=== PATIENT | female | born 2000 | race Caucasian/White ===

== ENCOUNTER 2024-08-15 12:43 | Emergency (ER) | payer BC, SELFPAY ==
[2024-08-15 12:44] VITALS: BP 144/97
[2024-08-15 13:07] LABS: % Basophils 0.8 % (0-2); % Eosinophils 0.1 % (0-6); % Immature Granulocytes 0.3 % (0-0.5); % Monocytes 4.7 % (1.7-9.3); % Neutrophils 78.1 % (42.2-75.2); Absolute Basophils 0.1 10^3/uL (0-0.2); Absolute Lymphocytes 1.6 10^3/uL (1.2-3.4); Absolute Monocytes 0.5 10^3/uL (0.1-0.6); Absolute Neutrophils 7.8 10^3/uL (1.4-6.5); Hematocrit 46.1 % (37.0-47.0); Hemoglobin 16.5 g/dL (12.0-16.0); Mean Corp Hgb Conc. 35.8 g/dL (33.0-37.0); Mean Corpuscular Hgb 30.1 pg (27.0-31.0); Mean Corpuscular Volume 84.1 fL (81.0-99.0); Mean Platelet Volume 10.4 fL (7.4-10.4); Nucleated Red Blood Cells % 0 %; Platelet Count 317 10^3/uL (130-400); Red Blood Cell Count 5.48 10^6/uL (4.20-5.40); Red Cell Dist. Width 11.1 % (11.5-14.5)
[2024-08-15 13:09] LABS: Urine Albumin Negative (Neg - Trace); Urine Bilirubin Negative (Negative); Urine Character Clear (Clear); Urine Color Yellow; Urine Glucose Negative (Negative); Urine Ketone 3+ (Negative); Urine Leukocyte Negative (Negative); Urine Nitrite Negative (Negative); Urine Occult Blood Negative (Negative); Urine Urobilinogen Negative (Neg - 1+)
[2024-08-15 13:20] VITALS: BP 120/83
[2024-08-15 13:25] LABS: HCG, Serum Qualitative Screen Negative
[2024-08-15 13:36] LABS: Troponin I < 0.012 ng/ml
--- NOTE | 2024-08-15 13:50 | ED.GENMED ---
History of Present Illness
<Karlene Cotto PA-C - Last Filed: 08/16/24 13:58>
General
Chief Complaint: Dizziness
Source: patient
Exam Limitations: none
Time Seen by Provider: 08/15/24 13:50
History of Present Illness
History of Present Illness:
23yoF with no significant past medical history presenting for evaluation of URI symptoms. Patient started to become sick about a week ago with sore throat. Sore throat has since resolved. She is currently experiencing congestion, cough, as well
as a mild headache. Tmax 100.1. She is experiencing shortness of breath and dizziness with standing/activity. She is also having some nausea, decreased appetite, and a burning pain in her upper abdomen. She was in [place] 2 weeks ago with
friends and one of her friends had a sinus infection. She denies any dysuria, vomiting, diarrhea.
Past History
<Karlene Cotto PA-C - Last Filed: 08/16/24 13:58>
Past History
ED Past Medical History: None
ED Past Surgical History: None
Social History
Tobacco: Non-smoker
Alcohol: None
Drug: None
Personal: Single
Living: with family
Employment: Employed
Phy Exam
<Karlene Cotto PA-C - Last Filed: 08/16/24 13:58>
General Physical Exam
General Presentation: well appearing and no apparent distress
General Skin: warm and dry
General Habitus: normal
General Mental: alert
ENT Exam
ENT Exam: TM's normal, pharynx normal, neck supple and normocephalic
Additional ENT: No nuchal rigidity
Cardiovascular Exam
Cardiovascular Exam: regular rate/rhythm and no murmur
Pulmonary Exam
Pulmonary Exam: lungs clear, no respiratory distress, no rales, no crackles, no rhonchi and no wheezing
Gastrointestinal Exam
Gastrointestinal Exam: soft, non distended and other (Mild tenderness in RUQ without rebound or guarding.)
Neurological Exam
Neurological Exam: alert
Roe Coma Scale
Eye Opening: Spontaneous
Verbal Response: Oriented
Motor Response: Obeys Commands
GCS Total Score: 15
Skin Exam
Skin Exam: normal color and warm/dry
Psychiatric Exam
Psychiatric Exam: normal mood/affect
<Celia Castillo MANAGER TERMINAL - Last Filed: 08/15/24 18:27>
Joe Coma Scale
GCS Total Score: 15
Course
<Karlene Cotto PA-C - Last Filed: 08/16/24 13:58>
Orders/Labs/Results
Orders:
Orders
08/15/24 12:47
Electrocardiogram (*1) Urgent
Reason for Study: Chest Pain
EKG- Treatment ONCE
Test Result ONCE
08/15/24 12:56
Basic Metabolic Panel Urgent
Complete Blood Count/With Diff Urgent
HCG, Serum Qualitative Screen Urgent
Comment: Notify provider if positive test present
Monotest Urgent
Troponin I Urgent
08/15/24 13:01
Urinalysis Reflex To Culture Urgent
Date Specimen was Collected: 08/15/24
Time Specimen was Collected: 12:47
08/15/24 13:59
0.9% Sodium Chloride 1000 ml [Nss] 1,000 ml IV BOLUS
CR Chest - 2 Views Urgent
Comment:
Reason For Exam: SOB
US Abdomen Complete/Upper Urgent
Comment:
Reason For Exam: RUQ pain
08/15/24 14:02
Orthostatic VS- Treatment ONCE
08/15/24 15:30
COVID-19 Antigen Urgent
Source: Nasal Swab
D-Dimer Urgent
LFT [Twpgs-Eebh-Stbjgom] Urgent
Potassium Urgent
08/15/24 15:31
Influenza A+B Rapid Molecular Urgent
KO Source: Nasal Swab
Specimen Description:
Abnormal Lab Results
08/15/24 08/15/24
12:56 13:01
RBC 5.48 H 10^6/uL
(4.20-5.40)
Hgb 16.5 H g/dL
(12.0-16.0)
RDW 11.1 L %
(11.5-14.5)
Absolute Neuts (auto) 7.8 H 10^3/uL
(1.4-6.5)
Neutrophils % 78.1 H %
(42.2-75.2)
Lymphocytes % 16.0 L %
(20.5-51.1)
Carbon Dioxide 19 L mmol/L
(22-30)
Glucose 130 H mg/dl
(70-99)
Calcium 10.6 H mg/dl
(8.4-10.2)
Urine Ketones 3+ A
(Negative)
Monoscreen Positive A
(Negative)
08/15/24 12:56
08/15/24 15:30
Vital Signs
Initial and Last Documented VS:
Initial Vital Signs
Temp Pulse Resp BP Pulse Ox
98.7 F 140 20 144/97 99
08/15/24 12:44 08/15/24 12:44 08/15/24 12:44 08/15/24 12:44 08/15/24 12:44
Last Documented Vital Signs
Temp Pulse Resp BP Pulse Ox
98.7 F 75 18 101/54 98
08/15/24 16:00 08/15/24 16:00 08/15/24 16:00 08/15/24 16:00 08/15/24 16:00
<Celia Castillo, MANAGER TERMINAL - Last Filed: 08/15/24 18:27>
Orders/Labs/Results
Orders:
Orders
08/15/24 12:47
Electrocardiogram (*1) Urgent
Reason for Study: Chest Pain
EKG- Treatment ONCE
Test Result ONCE
08/15/24 12:56
Basic Metabolic Panel Urgent
Complete Blood Count/With Diff Urgent
HCG, Serum Qualitative Screen Urgent
Comment: Notify provider if positive test present
Monotest Urgent
Troponin I Urgent
08/15/24 13:01
Urinalysis Reflex To Culture Urgent
Date Specimen was Collected: 08/15/24
Time Specimen was Collected: 12:47
08/15/24 13:59
0.9% Sodium Chloride 1000 ml [Nss] 1,000 ml IV BOLUS
CR Chest - 2 Views Urgent
Comment:
Reason For Exam: SOB
US Abdomen Complete/Upper Urgent
Comment:
Reason For Exam: RUQ pain
08/15/24 14:02
Orthostatic VS- Treatment ONCE
08/15/24 15:30
COVID-19 Antigen Urgent
Source: Nasal Swab
D-Dimer Urgent
LFT [Snidm-Dnow-Uachonv] Urgent
Potassium Urgent
08/15/24 15:31
Influenza A+B Rapid Molecular Urgent
KO Source: Nasal Swab
Specimen Description:
Abnormal Lab Results
08/15/24 08/15/24
12:56 13:01
RBC 5.48 H 10^6/uL
(4.20-5.40)
Hgb 16.5 H g/dL
(12.0-16.0)
RDW 11.1 L %
(11.5-14.5)
Absolute Neuts (auto) 7.8 H 10^3/uL
(1.4-6.5)
Neutrophils % 78.1 H %
(42.2-75.2)
Lymphocytes % 16.0 L %
(20.5-51.1)
Carbon Dioxide 19 L mmol/L
(22-30)
Glucose 130 H mg/dl
(70-99)
Calcium 10.6 H mg/dl
(8.4-10.2)
Urine Ketones 3+ A
(Negative)
Monoscreen Positive A
(Negative)
08/15/24 12:56
08/15/24 15:30
Vital Signs
Initial and Last Documented VS:
Initial Vital Signs
Temp Pulse Resp BP Pulse Ox
98.7 F 140 20 144/97 99
08/15/24 12:44 08/15/24 12:44 08/15/24 12:44 08/15/24 12:44 08/15/24 12:44
Last Documented Vital Signs
Temp Pulse Resp BP Pulse Ox
98.7 F 75 18 101/54 98
08/15/24 16:00 08/15/24 16:00 08/15/24 16:00 08/15/24 16:00 08/15/24 16:00
<Karlene Cotto PA-C - Last Filed: 08/16/24 13:58>
MDM/Problems Addressed
Differential Diagnosis Includes:
23yoF here with URI symptoms x 1 week. Currently c/o nasal congestion, CASTILLO, chest pain, SOB/dizziness with activity. HR 140 in triage which improved to 99 prior to initial exam. She is well appearing in no distress. Mild tenderness in RUQ. Exam is
otherwise reassuring. Differential diagnosis includes but is not limited to: viral illness, pneumonia, myocarditis, consider PE
Initial ED plan: Workup initiated in triage. White count is normal. No signs of infection on UA. EKG shows sinus tachycardia without ischemic changes and troponin WNL. Will check COVID/flu swabs, CXR, and upper abdominal ultrasound. IV fluid bolus.
<Celia Castillo MANAGER TERMINAL - Last Filed: 08/15/24 18:27>
MDM/Problems Addressed
MDM/Problems Addressed:
5:50 PM:
D-dimer is normal,
Abdominal ultrasound radiology report read: IMPRESSION:
No gallstones or bile duct dilatation. Unremarkable sonographic appearance of the liver.
Incidental advanced distention of the right renal pelvis and mild distention of the left renal pelvis. No associated significant distention of the calyceal system. No shadowing renal calculi identified. 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
Recommend correlation with patient history and renal function tests.
Results discussed with pt, copy of report provided to her
CBC, CMP, U/A with no significant abnormality, Covid neg, Lamoure positive, Troponin neg, D dimer normal
Pt stable for discharge
Diagnosis: Mononucleosis
<Karlene Cotto PA-C - Last Filed: 08/16/24 13:58>
*Pulse Oximetry
SaO2: 99
Oxygen Mode of Delivery: Room air
*EKG
Interpreted by ED Provider?: Yes
EKG Intrepretation Date: 08/15/24
Heart Rate: 110
Rate: tachycardiac
Rhythm: sinus
[place]: normal axis
Interval: normal interval
QRS Pattern: normal QRS
Ischemia: no ischemia
<Celia Castillo, MANAGER TERMINAL - Last Filed: 08/15/24 18:27>
*Pulse Oximetry
Patient hypoxic: not evaluated
*Critical Care Note
Total Time (30-74mins, 75-104mins- exclusive of procedures): Not Applicable
ED Attending Note
<Karlene Cotto PA-C - Last Filed: 08/16/24 13:58>
-
Portions of this chart may have been created with voice recognition software.� Occasional wrong word or��sound alike� substitutions may have occurred due to the inherent limitations of voice recognition software.
Discharge Plan
Departure
Patient Disposition: Home (Routine Discharge)
Date of Disposition: 08/15/24
Time of Disposition: 18:04
Patient with high blood pressure during this ER visit?: No
Condition: Good
Discharge Problem:
Mononucleosis
Instructions: Mononucleosis
Prescriptions:
No Action
No Current Medications
0
Referrals:
Dalila Quiroz MD [Family Provider, Internal Medicine] - As needed
Activity Restrictions/Additional Instructions:
As we discussed, your workup today shows nothing worrisome. Your monotest is positive.
Your ultrasound shows some mild abnormalities of your kidneys that are likely nothing worrisome and have been there since . Please take your ultrasound report with you to your doctors appointment and discuss. Everything else was normal.
Interventions
Interventions:
*Risk Screen - Suicide Last Done: 08/15/24 12:44
*General Assessment Last Done: 08/15/24 13:05
*Neglect/Abuse Screening Last Done: 08/15/24 12:44
*ED- Fall Risk Assessment Last Done: 08/15/24 13:05
*ED COVID-19 Vaccine History Last Done: 08/15/24 18:30
*Nursing Disposition Last Done: 08/15/24 18:30
ED- Neurological Assessment Last Done: 08/15/24 13:05
ED- Cardiac Assessment Last Done: 08/15/24 13:05
ED Swallowing Screen Last Done: 08/15/24 13:05
Discharge Date and Time
Discharge Date/Time: 08/15/24 18:35
Print Language: KENYAN
[2024-08-15 13:57] LABS: Blood Urea Nitrogen 11 mg/dl (7-17); Glucose 130 mg/dl (70-99); Sodium 140 mmol/L (135-145); eGFR > 60.00
[2024-08-15 13:58] LABS: Calcium 10.6 mg/dl (8.4-10.2); Carbon Dioxide 19 mmol/L (22-30); Chloride 106 mmol/L (98-107)
[2024-08-15] MEDS: NSS 1000 IV (14:00)
[2024-08-15 14:02] VITALS: BP 106/70; BP 113/72; BP 98/74; PULSE 100; PULSE 117; PULSE 122
[2024-08-15 14:04] LABS: Monotest Positive (Negative)
[2024-08-15 15:51] LABS: ALT (SGPT) 15 U/L (0-35); AST (SGOT) 20 U/L (14-36); Albumin 4.6 g/dl (3.5-5.0); Alkaline Phosphatase 74 U/L (38-126); Direct Bilirubin 0.2 mg/dl (0.0-0.4); Potassium 4.2 mmol/L (3.5-5.1); Total Bilirubin 0.8 mg/dl (0.2-1.3); Total Protein 7.2 g/dl (6.3-8.2)
[2024-08-15 15:54] LABS: COVID-19 Antigen Negative (Negative)
[2024-08-15 16:00] VITALS: BP 101/54
[2024-08-15 16:09] LABS: D-Dimer < 0.27 ug/mlFEU (0.00-0.50)
== END 2024-08-15 18:35 | disposition home or self-care (01) ==
LOC: EMR 12:43
PROVIDERS: Physician Assistant; EMERGENCY PHYSICIAN Emergency Medicine; FAMILY PHYSICIAN Internal Medicine
DX: B27.90 Infectious mononucleosis, unspecified without complication (principal)
CPT/HCPCS: 99284; 96360; 71046; 76700; 80048; 80076; 81003; 84132; 84484; 84703; 85025; 85379; 86308; 87502; 87811; 93005

== ENCOUNTER 2024-08-21 10:26 | Emergency (ER) | payer BC, SELFPAY ==
[2024-08-21] VITALS (11 sets, daily range): BP systolic 107–155; BP diastolic 59–86; BMI 25.0
--- NOTE | 2024-08-21 10:51 | ED.GENMED ---
History of Present Illness
<Diane Pierson MD - Last Filed: 08/21/24 16:15>
General
Chief Complaint: Heart Rate Problem
Source: patient
Exam Limitations: none
Time Seen by Provider: 08/21/24 10:54
Nursing documentation reviewed up to this point in time: agreed with
History of Present Illness
History of Present Illness:
Patient is a 23-year-old female who reports intermittent left-sided chest pain radiating into her back. Patient states at times it is worse when she takes a deep breath. Patient was recently seen in the emergency department for dizziness about a
week ago. At that time, she presented with a heart rate in the 140s but normalized with IV fluids and patient was diagnosed with mono. Patient reports her symptoms are much worse when she stands up and walks around. Patient describes a feeling of
rapid heart rate and feeling as if she is in a pass out. Patient denies a history of PE and DVT.
<Roseanne Carney MD, Resident - Last Filed: 08/21/24 16:04>
General
Source: patient and family
Exam Limitations: none
Nursing documentation reviewed up to this point in time: agreed with
History of Present Illness
History of Present Illness:
Ms. Lentz is a 23yoF with mononucleosis diagnosed 6 days ago, who is presenting with tachycardia and chest pain since this morning. She woke up this morning feeling her heart racing and her watch said 171 bpm. She feels pain in the middle of her
chest, under her left breast, at her left lateral side wall, and sometimes radiating to her back.
She endorses lightheadedness and seeing black dots when standing up, which has led her to sit at home for most of the last 2 weeks. She endorses feeling warm. She endorses eating and drinking well.
She recalls feeling similarly 2 weeks ago when she thought there was an intruder in her house. She states she was diagnosed with generalized anxiety disorder in high school and she manages it through behavioral methods, not medication. She does not
take any medications.
She was diagnosed with mononucleosis 6 days ago and has felt fatigued since 10 days ago, 3 days after returning from a trip to [place]. She received an abdominal ultrasound, which reported a normal-sized spleen and incidental UPJ obstruction
of the kidneys.
She denies a family history of tachycardia, arrhythmia, or thyroid disorder.
She reports her last menstrual period was 2 weeks ago. She denies taking oral contraceptives or recreational drugs. She denies shortness of breath. She denies trauma to her chest
Past History
<Diane Pierson MD - Last Filed: 08/21/24 16:15>
Family History
Family History: Other
<Roseanne Carney MD, Resident - Last Filed: 08/21/24 16:04>
Past History
ED Past Medical History: None
ED Past Surgical History: None
Social History
Tobacco: Non-smoker
Alcohol: None
Drug: None
Personal: Single
Living: with family
Employment: Employed
Review of Systems
<Diane Pierson MD - Last Filed: 08/21/24 16:15>
Review of Systems
Allergies reviewed?: Yes
All Other Systems: ROS reviewed and negative except as documented in HPI and ROS
Constitutional: Reports fatigue
EENT: Reports no symptoms
Respiratory: Reports cough
Cardiac: Reports chest pain and palpitations
ABD/GI: Reports no symptoms
: Reports no symptoms
Musculoskeletal: Reports no symptoms
Skin: Reports no symptoms
Neurological: Reports no symptoms
Endocrine: Reports no symptoms
Hematologic/Lymphatic: Reports no symptoms
Psychiatric: Reports no symptoms
Phy Exam
<Diane Pierson MD - Last Filed: 08/21/24 16:15>
Physical Exam
Physical Exam:
Physical Exam
General: no apparent distress, not acutely ill
Neck: supple. no meningeal signs. normal psoterior pharynx
Heart: Tachycardic, no murmur
Lungs: no acute respiratory distress. clear bilaterally
Abdomen: normal bowel sounds. not tender. no CVAT
Neuro: alert and oriented. no focal neurological deficits
Skin: no rash
Psychiatric: well kept. interactive and cooperative
Extremities: no edema. no calf tenderness. negative homans. good distal pulses
<Roseanne Carney MD, Resident - Last Filed: 08/21/24 16:04>
Pulmonary Exam
Pulmonary Exam: other (pleuritic breath sounds not auscultated)
Gastrointestinal Exam
Gastrointestinal Exam: non tender (non-tender except for left upper quadrant, which has been known since mononucleosis diagnosis)
Course
<Diane Pierson MD - Last Filed: 08/21/24 16:15>
Orders/Labs/Results
Orders:
Orders
08/21/24 10:27
EKG [Electrocardiogram (*1)] Urgent
Reason for Study: Tachycardia
EKG- Treatment ONCE
08/21/24 11:07
0.9% Sodium Chloride 1000 ml [Nss] 1,000 ml IV BOLUS
08/21/24 11:09
Complete Blood Count/No Diff Urgent
Comprehensive Metabolic Panel Urgent
Magnesium Urgent
TSH Urgent
Comment: ADD ON
Troponin I Urgent
08/21/24 11:41
Add On- LAB Urgent
Tests Added?: TSH
08/21/24 11:54
CT Chest PE Study Urgent
Comment:
Reason For Exam: tachycardia, CP
08/21/24 12:38
0.9% Sodium Chloride 1000 ml [Nss] 1,000 ml IV BOLUS
Abnormal Lab Results
08/21/24
11:09
RDW 11.1 L %
(11.5-14.5)
MPV 11.0 H fL
(7.4-10.4)
Carbon Dioxide 20 L mmol/L
(22-30)
BUN 18 H mg/dl
(7-17)
Calcium 10.3 H mg/dl
(8.4-10.2)
Albumin 5.2 H g/dl
(3.5-5.0)
08/21/24 11:09
08/21/24 11:09
Vital Signs
Initial and Last Documented VS:
Initial Vital Signs
Pulse Resp BP Pulse Ox
143 18 155/86 100
08/21/24 10:36 08/21/24 10:36 08/21/24 10:36 08/21/24 10:36
Last Documented Vital Signs
Temp Pulse Resp BP Pulse Ox
98.9 F 108 21 117/59 98
08/21/24 10:56 08/21/24 15:02 08/21/24 15:02 08/21/24 15:02 08/21/24 15:02
<Roseanne Carney MD, Resident - Last Filed: 08/21/24 16:04>
Orders/Labs/Results
Orders:
Orders
08/21/24 10:27
EKG [Electrocardiogram (*1)] Urgent
Reason for Study: Tachycardia
EKG- Treatment ONCE
08/21/24 11:07
0.9% Sodium Chloride 1000 ml [Nss] 1,000 ml IV BOLUS
08/21/24 11:09
Complete Blood Count/No Diff Urgent
Comprehensive Metabolic Panel Urgent
Magnesium Urgent
TSH Urgent
Comment: ADD ON
Troponin I Urgent
08/21/24 11:41
Add On- LAB Urgent
Tests Added?: TSH
08/21/24 11:54
CT Chest PE Study Urgent
Comment:
Reason For Exam: tachycardia, CP
08/21/24 12:38
0.9% Sodium Chloride 1000 ml [Nss] 1,000 ml IV BOLUS
Abnormal Lab Results
08/21/24
11:09
RDW 11.1 L %
(11.5-14.5)
MPV 11.0 H fL
(7.4-10.4)
Carbon Dioxide 20 L mmol/L
(22-30)
BUN 18 H mg/dl
(7-17)
Calcium 10.3 H mg/dl
(8.4-10.2)
Albumin 5.2 H g/dl
(3.5-5.0)
08/21/24 11:09
08/21/24 11:09
Vital Signs
Initial and Last Documented VS:
Initial Vital Signs
Pulse Resp BP Pulse Ox
143 18 155/86 100
08/21/24 10:36 08/21/24 10:36 08/21/24 10:36 08/21/24 10:36
Last Documented Vital Signs
Temp Pulse Resp BP Pulse Ox
98.9 F 108 21 117/59 98
08/21/24 10:56 08/21/24 15:02 08/21/24 15:02 08/21/24 15:02 08/21/24 15:02
<Diane Pierson MD - Last Filed: 08/21/24 16:15>
MDM/Problems Addressed
Differential Diagnosis Includes:
Viral myocarditis, dehydration, PE
MDM/Problems Addressed:
Patient presents with acute palpitations and chest pain
<Roseanne Carney MD, Resident - Last Filed: 08/21/24 16:04>
MDM/Problems Addressed
Differential Diagnosis Includes:
Viral myocarditis, dehydration, PE, hyperthyroidism, costochondritis
MDM/Problems Addressed:
Patient presents with acute palpitations and chest pain.
Her heart rate continues to be elevated in 100s-110s after 2L fluid and 5 hours from presentation.
CTPE did not demonstrate PE or pericardial effusion
CBC, CMP, TSH wnl
IV fluids given
Cardiology consult for sustained sinus tachycardia
<Diane Pierson MD - Last Filed: 08/21/24 16:15>
*Radiology
Radiology exam reviewed: radiology read reviewed
*Pulse Oximetry
Oxygen Mode of Delivery: Room air
Patient hypoxic: no
Comment: 100% on room air
*EKG
Interpreted by ED Provider?: Yes
Interpretation: abnormal
Comparison EKG: changes noted
Rate: tachycardiac
Rhythm: sinus
[place]: normal axis
Interval: normal interval
QRS Pattern: normal QRS
Ischemia: no ischemia
*Conference Planning Manager Interpretation
Rate: tachycardiac
Interpretation: abnormal
Rhythm: sinus
Data Reviewed
Review of Other/Old Records Reveals: Radiology Studies (Chest x-ray done last week reviewed by me. No sign of definite infiltrate)
Source: patient and family (Mother)
<Roseanne Carney MD, Resident - Last Filed: 08/21/24 16:04>
*Pulse Oximetry
SaO2: 100
*Critical Care Note
Total Time (30-74mins, 75-104mins- exclusive of procedures): Not Applicable
<Diane Pierson MD - Last Filed: 08/21/24 16:15>
Patient Management
Discussion with other providers: Other (Dr. Mendenhall)
Escalation/DeEscalation of care consider admission/obs:
Patient remains well and comfortable. Heart rate improved with IV fluids. Dr. Mendenhall made aware of case and feels patient could go home with cardiology follow-up. Assured me that he will have the office call the patient for follow-up. There is
no sign of PE or pneumonia on CT. There is no sign of hemodynamic instability or pericardial effusion
ED Attending Note
<Roseanne Carney MD, Resident - Last Filed: 08/21/24 16:04>
-
Portions of this chart may have been created with voice recognition software.� Occasional wrong word or��sound alike� substitutions may have occurred due to the inherent limitations of voice recognition software.
Discharge Plan
Departure
Patient Disposition: Home (Routine Discharge)
Date of Disposition: 08/21/24
Time of Disposition: 16:11
Patient with high blood pressure during this ER visit?: Yes
Condition: Good
Covid-19: Not Applicable
Discharge Problem:
Tachycardia
Instructions: Tachycardia
Prescriptions:
No Action
No Current Medications
0
Referrals:
[facility] [Other]
Ronen Marie MD [Active, Cardiology]
Referral Note: Please follow-up with cardiology within 1 week
Dalila Quiroz MD [Family Provider, Internal Medicine]
Activity Restrictions/Additional Instructions:
Please do not do any heavy exertion. Change positions slowly and drink lots of fluids
Interventions
Interventions:
*Risk Screen - Suicide Last Done: 08/21/24 10:54
*General Assessment Last Done: 08/21/24 10:54
*Neglect/Abuse Screening Last Done: 08/21/24 10:54
*ED- Fall Risk Assessment Last Done: 08/21/24 10:54
*ED COVID-19 Vaccine History Last Done: 08/21/24 10:54
ED- Cardiac Assessment Last Done: 08/21/24 11:26
ED- Pulmonary Assessment Last Done: 08/21/24 11:26
Discharge Date and Time
Print Language: YAKUT
[2024-08-21] MEDS: NSS 1000 IV ×2 (11:08→12:42)
[2024-08-21 11:25] LABS: Hematocrit 44.3 % (37.0-47.0); Hemoglobin 15.7 g/dL (12.0-16.0); Mean Corp Hgb Conc. 35.4 g/dL (33.0-37.0); Mean Corpuscular Volume 85.7 fL (81.0-99.0); Platelet Count 296 10^3/uL (130-400); Red Cell Dist. Width 11.1 % (11.5-14.5)
[2024-08-21 11:42] LABS: ALT (SGPT) 16 U/L (0-35); AST (SGOT) 21 U/L (14-36); Albumin 5.2 g/dl (3.5-5.0); Alkaline Phosphatase 79 U/L (38-126); Blood Urea Nitrogen 18 mg/dl (7-17); Calcium 10.3 mg/dl (8.4-10.2); Carbon Dioxide 20 mmol/L (22-30); Chloride 106 mmol/L (98-107); Glucose 92 mg/dl (70-99); Magnesium 2.2 mg/dl (1.6-2.3); Potassium 4.3 mmol/L (3.5-5.1); Sodium 137 mmol/L (135-145); Total Protein 7.6 g/dl (6.3-8.2); eGFR > 60.00
[2024-08-21 11:52] LABS: Troponin I < 0.012 ng/ml
[2024-08-21 13:25] LABS: TSH 0.68 uIU/ml (0.47-4.68)
== END 2024-08-21 18:57 | disposition home or self-care (01) ==
LOC: EMR 10:26
PROVIDERS: EMERGENCY PHYSICIAN Emergency Medicine; FAMILY PHYSICIAN Internal Medicine
DX: R00.0 Tachycardia, unspecified (principal); R07.89 Other chest pain
CPT/HCPCS: 99284; 96360; 96361; 71275; 80053; 83735; 84443; 84484; 85027; 93005; Q9967